=== PATIENT | female | born 1960 | race Caucasian/White ===

== ENCOUNTER 2018-06-03 11:32 | Day surgery (SDC) | payer BC ==
[~2018-06-03 11:32] MED LIST: Buffered Lidocaine 0.9% SYRIN* 5 ML/SYR SYRINGE INTRADERM ONE; Dexamethasone IV* 4 MG/ML 1 ML (4 MG) IV SLOW PU ONE; DiMENhydriNATE IV* 50 MG/ML VIAL IV PUSH ONE; Famotidine IV* 10 MG/ML 2 ML (20 mg) IV ONE
[2018-06-03] MEDS ORDERED: Famotidine IV* 10 MG/ML 2 ML (20 mg) ONE (11:40)
[2018-06-03] MEDS ORDERED: DiMENhydriNATE IV* 50 MG/ML VIAL ONE (11:40)
[2018-06-03] MEDS ORDERED: Dexamethasone IV* 4 MG/ML 1 ML (4 MG) ONE (11:40)
[2018-06-03] MEDS ORDERED: ceFAZolin 2 GM in NS PREMIX(*) 2 GM/100 ML BAG IVPB ONE (12:14)
[2018-06-03] MEDS ORDERED: ROPIVACAINE 5 MG/ML 30 ML BTL (0.5%) ONE (12:50)
[2018-06-03] MEDS ORDERED: Lidocaine 1% MPF wEPI 200,000* 30 ML SDV ONE (12:50)
[2018-06-03] MEDS ORDERED: Midazolam* 1 MG/ML 5 ML VIAL (5 MG) ONE (13:44)
[2018-06-03] MEDS ORDERED: fentaNYL* 50 MCG/ML 2 ML VIAL (100 MCG VIAL) ONE (13:44)
[2018-06-03] MEDS ORDERED: Lidocaine 2% PF * 5 ML VIAL ONE (13:44)
[2018-06-03] MEDS ORDERED: Propofol* 10 MG/ML 20 ML BTL IV PUSH ONE (13:44)
[2018-06-03] MEDS ORDERED: Labetalol IV* 5 MG/ML 20 ML VIAL ONE (14:10)
[2018-06-03] MEDS ORDERED: Ondansetron INJ* 2 MG/ML VIAL ONE (14:12)
[2018-06-03] MEDS ORDERED: oxyCODONE/Acetamin 5/325 MG* TAB ONE (15:28)
[2018-06-03 15:35] VITALS: BP 150/82
--- NOTE | 2018-06-04 10:52 | OP ---
DATE OF OPERATION: 06/03/18 [facility] DATE OF : 60 SURGEON: Krystin Patino MD PREPARATION SUPERVISOR CANNING: None available. ANESTHESIOLOGIST: Dr. Morton. ANESTHESIA: General. PRE-OP DIAGNOSIS: Left knee loose body with impingement. POST-OP DIAGNOSIS: Ganglion along the anterior aspect of the ACL with lateral meniscus fraying and impingement. OPERATIVE PROCEDURE: 1. Left knee arthroscopy with removal of ganglion of 1 cm x 1 cm. 2. Synovectomy, anterior medial and lateral compartments medial meniscus. 3. Partial lateral meniscectomy. COMPLICATIONS: None. ESTIMATED BLOOD LOSS: Minimal. TOURNIQUET TIME: Zero minutes. INDICATIONS: Sangeetha is a 58-year-old female who presented with loose body sensations and then pain with impingement. She had an MRI that demonstrated a loose body anterolaterally. DESCRIPTION OF PROCEDURE: The anteromedial portal was made in an outside-in fashion. The shaver was used to debride back the abundant synovitis anteromedially and laterally. The patellofemoral joint was examined and the patella had grade 0 to 1 changes. The trochlea had some grade 2 changes but no large full-thickness flaps. Medial compartment was examined and the medial meniscus was intact. Medial compartment had grade 0 to 1 changes. The ACL and PCL were retracted. There was a small nodule that appeared to be embedded into the tendon and was present which would articulate anteriorly. This was then gently probed and found to be about 1 cm x 1 cm. This was found to be likely a ganglion. An 18-gauge needle was used to then aspirate it. Normal ganglion type fluid was identified. This was then debrided with biters and jabari which removed the entirety of the ganglion. The synovitis was carefully removed using jabari. The lateral compartment was examined and there was some mild fraying of the body of the lateral meniscus extending to the root. This was debrided back using jabari. Lateral femoral condyle and lateral plateau had grade 0 to 1 changes. The gutters were intact. The [place] portal was then utilized to make sure there were no further loose bodies evident. The knee was sterilely lavaged and any loose debris was removed. The wounds were copiously irrigated with sterile saline. Portals were closed with 0-nylon. Sterile dressings were applied. The portals were injected with 0.2% ropivacaine. Cryo/Cuff was placed. She was awoken from anesthesia and transferred to the PACU in stable condition. POSTOPERATIVE PLAN: She will be weightbearing as tolerated. Range of motion as tolerated. Discharged on pain medication. DVT prophylaxis considered but deferred due to no previous personal or family history. I will see the patient back in 10 to 14 days. [id number] #: [id number] MTDD
== END 2018-06-03 16:11 | disposition home or self-care (01) ==
LOC: OREAST 11:32
PROVIDERS: ATTEND Orthopaedic Surgery
DX: S83.282A Other tear of lateral meniscus, current injury, left knee, initial encounter (principal); M67.462 Ganglion, left knee; M25.862 Other specified joint disorders, left knee; I10 Essential (primary) hypertension; X58.XXXA Exposure to other specified factors, initial encounter; Y92.9 Unspecified place or not applicable
CPT/HCPCS: 88304; A9270-GY; J0690; J1100; J1240; J2001; J2250; J2405; J2704; J2795; J3010